=== PATIENT | female | born 1955 | race Caucasian/White ===

== ENCOUNTER 2023-07-09 09:43 | Outpatient (CLI) | payer OTHER, SELFPAY ==
--- NOTE | 2023-07-09 11:00 | NEURO_ITS ---
Impression: # Complains of feet discomfort. History of familial high arch feet. # Asymmetrical F-waves with right peroneal F-wave involvement. # Needle/EMG exam not requested. # Clinical correlation recommended. Question familial neuropathic process. Nerve Conduction Studies Anti Sensory Summary Table Stim Site NR Peak (ms) P-T Amp (?V) Site1 Site2 Delta-P (ms) Dist (cm) Kenrick (m/s) Left Sup Fibular Anti Sensory (Ant Lat Mall) 14 cm 3.4 4.8 14 cm Ant Lat Mall 3.4 16.0 47 Right Sup Fibular Anti Sensory (Ant Lat Mall) 14 cm 3.8 16.5 14 cm Ant Lat Mall 3.8 16.0 42 Left Sural Anti Sensory (Lat Mall) Calf 4.0 1.6 Calf Lat Mall 4.0 16.0 40 Right Sural Anti Sensory (Lat Mall) Calf 3.9 1.8 Calf Lat Mall 3.9 16.0 41 Motor Summary Table Stim Site NR Onset (ms) O-P Amp (mV) Site1 Site2 Delta-0 (ms) Dist (cm) Kenrick (m/s) Left Peroneal Motor (Vastus Med) Ankle 4.0 2.2 Popit Ankle 9.0 40.0 44 Popit 13.0 1.9 Right Peroneal Motor (Vastus Med) Ankle 4.1 3.2 Popit Ankle 9.1 40.0 44 Popit 13.2 3.0 Left Tibial Motor (Abd Coats Brev) Ankle 4.3 1.1 Knee Ankle 10.2 42.0 41 Knee 14.5 1.4 Right Tibial Motor (Abd Coats Brev) Ankle 4.4 2.4 Knee Ankle 10.1 42.0 42 Knee 14.5 2.0 F Wave Studies NR F-Lat (ms) L-R F-Lat (ms) Left Peroneal (Mrkrs) (EDB) 44.97 Right Peroneal (Mrkrs) Run #1 (EDB) 52.22 7.25 Right Peroneal (Mrkrs) Run #2 (EDB) NO RESPONSE NR Left Tibial (Mrkrs) (Abd Hallucis) 44.78 0.06 Right Tibial (Mrkrs) (Abd Hallucis) 44.72 0.06 MTDD
== END 2023-07-09 09:44 | disposition home or self-care (01) ==
PROVIDERS: PCP Family Medicine Adolescent Medicine; Visit Provider Family Medicine Adolescent Medicine
DX: G62.9 Polyneuropathy, unspecified (principal)
CPT/HCPCS: 95910

== ENCOUNTER 2023-09-21 03:11 | Emergency (ER) | payer OTHER, SELFPAY ==
[2023-09-21] VITALS (24 sets, daily range): BP systolic 119–150; BP diastolic 68–93; PULSE 70–109; RESP 16–20; TEMP 37.2–37.8; O2SAT 95–100
--- NOTE | ~2023-09-21 | US_ITS ---
EXAMINATION: US renal BI DATE: 09/21/2023 09:32 INDICATION: Intermittent proteinuria. TECHNIQUE: Multiple ultrasound grayscale images of the kidneys were obtained. COMPARISON: None. FINDINGS: The right kidney measures 10.0 x 3.3 x 4.6 cm. The left kidney measures 9.6 x 4.3 x 4.8 cm. The kidne ys demonstrate normal parenchymal echogenicity. There is no hydronephrosis. The bladder is normal. Th ere is a normal postvoid bladder volume. IMPRESSION: 1. Normal kidneys. No hydronephrosis. Reviewed, dictated and finalized at location A. TER APPRENTICE
--- NOTE | 2023-09-21 05:31 | PC.NURSE ---
Patient states she has come to the ED for evaluation of her back pain since April. Patient states she has seen her PCP and has a few visits with him. Patient states she has also had protein in her urine that her primary doesn't want to do anything about it. Patient states she has also seen a pet food deboner. Patient states she has been told she also has high cholesterol. Patient states she has come for evaluation, to hopefully get answers. Patient states I haven't taken anything for pain since I had protein in my urine and not sure where its coming from or why it is happening.
--- NOTE | 2023-09-21 07:02 | ED.BACK ---
HPI - Back Pain/Injury General Chief Complaint: Back Pain/Injury Stated Complaint: upper back pain Time Seen by Provider: 09/21/23 06:57 History of Present Illness HPI Narrative: Patient is a 68-year-old female who presents to the emergency department this morning complaining of back pain has been bothering for the past month. Patient states that she saw her primary care physician who did not seem to be too concerned about her back pain. Patient states that within the past month she has also noticed that there are a lot of problems in her urine and had her PCP test her for protein urea. Patient was noted to have protein in her urine and she was sent to a inward toll operator who she states did not do any bloodwork and just gave her a form to fill out to have a renal ultrasound performed as an outpatient. Patient is frustrated as she finds that she has been brushed off by both her PCP and inward toll operator and is concerned there is something wrong with her kidneys and has not been given any answers. Patient has not yet had her renal ultrasound. Back pain is in the left flank region. Patient admits that the pain is intermittent, comes and goes and feels achy. Patient is more concerned about the protein urea than the flank pain. She denies any current pain at this time. Patient denies any chest pain, shortness of breath, nausea, vomiting, abdominal pain, dysuria, hematuria, constipation, diarrhea, melena, hematochezia, fevers or chills. Patient also denies any headaches, dizziness, lightheadedness, blurry visions, focal weakness, numbness and or tingling. There are no other modifying, alleviating, or precipitating factors at this time. Related Data Home Medications Medication Instructions Recorded Confirmed ascorbic acid (vitamin C) 500 mg 500 mg PO 03/21/23 09/03/23 capsule cholecalciferol (vitamin D3) 125 125 mcg PO DAILY 03/21/23 09/03/23 mcg (5,000 unit) tablet magnesium 250 mg tablet 500 mg PO DAILY 03/21/23 09/03/23 mecobalamin (vitamin B12) 1,000 1,000 mcg PO DAILY 03/21/23 09/03/23 mcg lozenges multivitamin (Daily Multi-Vitamin 1 tablet PO DAILY 03/21/23 09/03/23 tablet) vitamin E (dl, acetate) 180 mg 180 mg PO DAILY 03/21/23 09/03/23 (400 unit) capsule Allergies Allergy/AdvReac Type Severity Reaction Status Date / Time oxycodone Allergy Nausea Verified 09/21/23 05:28 tramadol AdvReac Unknown Nausea Verified 09/21/23 05:28 Review of Systems Review of Systems: All systems are reviewed and are negative unless stated otherwise in the HPI. PMFSH Past Medical History Medical History Anxiety Chronic right hip pain Claustrophobia Surgical History Surgical History History of eye surgery History of total right hip arthroplasty (03/2022) Family History Family History Unknown No problems noted. 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 HEENT: PERRL, no rhinorrhea, no post nasal drip, oropharynx clear. Neck: Trachea midline, no JVD, no lymphadenopathy. Cardiovascular: Regular rate and rhythm, no murmurs, rubs or gallops, no [place]
[2023-09-21 07:38] LABS: Basophils Percent Auto 0.6 % (0.2-1.2); Hematocrit 39.9 % (37.0-47.0); Hemoglobin 13.5 g/dL (12.0-15.0); Immature Granulocyte Absolute 0.02 K/mm3 (0.00-0.031); Immature Granulocyte Percent A 0.4 % (0-0.5); Lymphocytes Absolute Auto 0.62 K/mm3 (0.9-3.2); Lymphocytes Percent Auto 11.5 % (18.3-44.2); Mean Corpuscular HGB Conc 33.8 g/dl (32-36); Mean Corpuscular Volume 100.5 fl (80-100); Mean Platelet Volume 9.5 fl (7.4-10.4); Monocytes Absolute Auto 0.8 K/mm3 (0.1-0.6); Monocytes Percent Auto 15.1 % (2.6-8.5); Neutrophils Absolute Auto 3.9 K/mm3 (1.3-6.7); Neutrophils Percent Auto 72.4 % (45.5-73.1); Platelet Count Result 171 k/mm3 (150-375); Red Blood Count 3.97 M/mm3 (4.2-5.4); Red Cell Distribution Width 12.7 % (11.5-14.5); White Blood Count 5.4 K/mm3 (4.5-10.0)
[2023-09-21 07:43] LABS: Appearance Urine Clear (Clear); Bilirubin Urine Negative (Negative); Blood Urine Negative (Negative); Color Urine Yellow (Yellow); Glucose Urine UA Negative (Negative); Ketones Urine 1+ mg/dL (Negative); Leukocyte Esterase Ur Negative LEU/UL (Negative); Nitrate Urine Negative (Negative); Protein Urine Negative (Negative); Specific Grav Ur 1.011 (1.001-1.035); Urobilinogen Urine 0.2 mg/dL (<2.0)
[2023-09-21 07:45] LABS: Add Urine Microscopic? NO
[2023-09-21 07:46] LABS: Alanine Aminotransferase 23 U/L (6-35); Albumin Level 4.3 g/dL (3.5-5.1); Alkaline Phosphatase 67 U/L (38-126); Anion Gap 7 mmol/L (8-16); Aspartate Amino Transferase 30 U/L (14-36); Bilirubin,Total 0.5 mg/dL (0.2-1.3); Blood Urea Nitrogen 9 mg/dL (7-17); Calcium 9.1 mg/dL (8.4-10.2); Carbon Dioxide 29 mmol/L (22-30); Chloride 101 mmol/L (98-107); Estimated CRCL calculation 75 ml/min; Estimated Glomerular Filt Rate > 60; Glucose 104 mg/dL (65-110); Potassium 3.8 mmol/L (3.4-5.0); Sodium 137 mmol/L (137-145)
[2023-09-21 07:51] LABS: Prothrombin Time 13.7 Seconds (11.1-14.7)
[2023-09-21] MEDS: SODIUM CHLORIDE 0.9% IV 1,000 ML 999 ML IV CONT (08:02)
== END 2023-09-21 10:03 | disposition home or self-care (01) ==
PROVIDERS: Emergency Provider Emergency Medicine; PCP Family Medicine Adolescent Medicine
DX: R80.9 Proteinuria, unspecified (principal); Z96.641 Presence of right artificial hip joint
CPT/HCPCS: 36415; 76775; 80053; 81001; 81003; 85025; 85610; 85730; 96360; 99284; J7030

== ENCOUNTER 2025-03-09 10:00 | Outpatient (CLI) | payer OTHER, SELFPAY ==
--- NOTE | ~2025-03-09 | DEXA_ITS ---
Bone Density Report Name: CANDICE SUE Age: 69 Sex: Female Ethnicity: White Date of : 1955 Indication: postmenopausal; screening for osteoporosis; Referring Provider: TANNA HOOD Study: Bone densitometry was performed. Exam Date: March 09, 2025 Accession number: [id number] Bone Density: Region BMD T-score Z-score Classification AP Spine(L1-L4) 0.825 -2.0 0.0 Osteopenia Femoral Neck (Left) 0.572 -2.5 -0.8 Osteoporosis Total Hip (Left) 0.639 -2.5 -1.1 Osteoporosis World Health Organization criteria for BMD impression classify patients as: Normal (T-score at or above -1.0), Osteopenia (T-score between -1.0 and -2.5), or Osteoporosis (T-score at or below -2.5). 10-year Fracture Risk: FRAX not reported because: Some T-score for Spine Total or Hip Total or Femoral Neck at or below -2.5 Clinical Information Provided by Patient: Has used the following medications: Vitamin D, Calcium Patient maximum height was 67 Menopause Age: 51 Does not regularly consume dairy products Onset of menses at age 12 Number of children 2 Impression: The patient has osteoporosis, based on the Left Total Hip T-score. Discussion: INCREASED RISK OF FRACTURE. BONE DENSITY IS UNDESIRABLY LOW AT ONE OR MORE SKELETAL SITES, CONSISTENT WITH POSTMENOPAUSAL OSTEOPOROSIS. This patient's lowest T-score meets the World Health Organization's (WHO) criteria for osteoporosis at one or more sites (T-score -2.5 or below). In untreated patients, the risk of osteoporotic fracture increases approximately two-fold for each 1.0 SD decrease in T-score. Low bone density is not the only risk factor for fracture; also consider factors such as patient's age, frailty or poor health, risk of falling, risk of injury, previous osteoporotic fracture, family history of osteoporosis, cigarette smoking, low body weight, etc. Not everyone with low bone mineral density has osteoporosis; osteomalacia and other metabolic bone disorders should also be considered. Patients who have osteoporosis should be evaluated for specific diseases and conditions (secondary causes) that may cause or contribute to bone loss. The [place] Association of Clinical Endocrinologists (AACE) and National Osteoporosis Foundation (NOF) recommend pharmacologic intervention for all postmenopausal women whose T-score is in this range. The patient should follow a healthful lifestyle (good nutrition with adequate calcium and vitamin D, and appropriate weight-bearing exercise). Follow-Up: Consider a repeat BMD and Vertebral Fracture Assessment (VFA) exam in 2 years or sooner if medically necessary, to reassess this patient's status. Reported by: GRIS on 03/09/2025 10:59:00 AM. Reviewed, dictated and finalized at location A.
--- OUTSIDE RECORDS SUMMARY | 2025-03-09 10:43 | XMS_ITS | Clinical Summary ---
Author Organization [facility] Address [address] [place] [address] Care Team Providers Care Town Manager Name Role Phone Dell Cam MD Primary Care Provider [phone] Allergies No known active allergies Medications ALPRAZolam 0.5 MG tabletIndication s:Anxiety Take 0.5 mg by mouth as needed in the morning and 0.5 mg as needed at noon and 0.5 mg as needed in the evening for Anxiety. Indications: Feeling Anxious. 1 Active fluorometholone 0.1 % ophthalmic suspension States she takes daily prn for dry eyes 1 Active Ascorbic Acid (VITAMIN C) 100 MG tabletIndication s:Vitamin and/or Mineral Deficiency Take 100 mg by mouth daily. Indications: Vitamin and/or Mineral Deficiency 2 Active Cyanocobalamin (VITAMIN B-12) 50 MCG TabIndications:V itamin and/or Mineral Deficiency Take 1 tablet by mouth daily. Indications: Vitamin and/or Mineral Deficiency 2 Active vitamin D3, cholecalciferol, 5000 UNITS capsuleIndicatio ns:Vitamin and/or Mineral Deficiency Take 1 capsule by mouth daily. Indications: Vitamin and/or Mineral Deficiency 2 Active Vitamin E 200 UNITS capsuleIndicatio ns:Vitamin and/or Mineral Deficiency Take 1 tablet by mouth daily. Indications: Vitamin and/or Mineral Deficiency 2 Active multi vitamin/minerals tabletIndication s:Vitamin and/or Mineral Deficiency Take 1 tablet by mouth daily. Indications: Vitamin and/or Mineral Deficiency 2 Active magnesium 250 MG tabletIndication s:Vitamin and/or Mineral Deficiency Take 2 tablets by mouth nightly. Indications: Vitamin and/or Mineral Deficiency 9 Active ibuprofen 200 MG tabletIndication s:Pain Take 600 mg by mouth every 6 (six) hours as needed for Pain. Indications: Pain 2 Active amoxicillin 500 MG tabletIndication s:Status post right hip replacement Take 4 tablets (2,000 mg total) by mouth once as needed. About 1 hour before dental procedures. 8 tablet 1 2 Active Active Problems Problem Noted Date Diagnosed Date Status post right hip replacement 03/26/2022 Family History Medical History Relation Comments Heart Disease Father Rheumatic Fever Father as Dementia Mother Hypertension Mother Stroke Mother Relation Status Comments Daughter 1 Alive Daughter 2 Alive Father Mother Alive Social History Tobacco Use Types Packs/Day Years Used Date Smoking Tobacco: Never Smokeless Tobacco: Never Tobacco Cessation:Counseling Given: No Comments:Never Smoked Alcohol Use Standard Drinks/Week Comments Not Currently 0 (1 standard drink = 0.6 oz pur e alcohol) NA PHQ-2 Answer Date Recorded PHQ-2 Score - If the patient scores above 3, please move on to questions 3-9 0 03/20/2022 Comments No Sex and Gender Information Value Date Recorded Sex Assigned at Not on file Legal Sex Female 8:01 PM CDT Gender Identity Not on file Sexual Orientation Not on file Last Filed Vital Signs Vital Sign Reading Time Taken Comments Blood Pressure 136/81 10/21/2022 10:21 AM PAINTER TOUCH UP Pulse 88 10/21/2022 10:21 AM PAINTER TOUCH UP Temperature 37.4 C (99.3 F) 10/21/2022 10:21 AM PAINTER TOUCH UP Respiratory Rate 18 05/08/2022 10:1 1 AM CDT Oxygen Saturation 97% 05/08/2022 10: 11 AM CDT Inhaled Oxygen Concentration - - Weight 69.6 kg (153 lb 6.4 oz) 10/21/2022 10:21 AM PAINTER TOUCH UP Height 170.2 cm (5' 7 ) 10/21/2022 10:2 1 AM PAINTER TOUCH UP Patient reported Body Mass Index 24.03 10/21/2022 10:21 AM PAINTER TOUCH UP Plan of Treatment Health Maintenance Due Date Last Done Comments Colorectal Cancer Screening Colonoscopy (10 Years) 1955 Hepatitis C 1974 DTaP, Tdap and Td Vaccines ( 1 - Tdap) 1975 Mammogram Screening 1996 Pneumococcal Vaccine: 50+ Years (1 of 1 - PCV) 2006 Zoster Vaccines (1 of 2) 2006 Annual Medicare Wellness Visit 2021 Dexa Scan (General) 2021 COVID-19 Vaccine (4 - 2023-2 5 season) 2024 09/03/2021, 02/18/2021, 01/29/2021 RSV Immunization or 60+ Years (1 - 1-dose 75+ series) 2031 Meningococcal B Vaccine Aged Out No l onger eligible based on patient's age to complete this topic Meningococcal Vaccine Aged Out No iram madyson eligible based on patient's age to complete this topic RSV Immunizations Under 20 Months Aged Out No longer eligible b ased on patient's age to complete this topic Medical Devices Implanted Type Area Supervisor Unloading Device Identifier Shelf Expiration Date Model / Serial / Lot Shell Acetabular Depuy 56mm - [id number] Implanted:Qty : 1 on 03/26/2022 by Shane Sparks MD at [facility] Hip Components Right: Hip DEPUY [id number] 02/01/2032 [id number] / / [id number] Liner Depuy Acet Altrx Neut 36x56 - [id number] Implanted:Qty : 1 on 03/26/2022 by Shane Sparks MD at [facility] Hip Components Right: Hip DEPUY [id number] 12/31/2026 [id number] / / [id number] Head Depuy Femoral Delta 36mm +8.5 - [id number] Implanted:Qty : 1 on 03/26/2022 by Shane Sparks MD at [facility] Hip Components Right: Hip DEPUY [id number] 01/31/2026 [id number] / / [id number] Stem Femoral 105mm Collar Actis Duofix 5 10/16 Standard Offset Taper Hip Sterile - [id number] Implanted:Qty : 1 on 03/26/2022 by Shane Sparks MD at [facility] Hip Components Right: Hip DEPUY [id number] 09/02/2031 [id number] / / [id number] Screw [place] Depuy 6.5 X 20mm - [id number] Implanted:Qty : 1 on 03/26/2022 by Shane Sparks MD at [facility] Screw Right: Hip DEPUY [id number] 12/03/2031 [id number] / / [id number] Screw [place] Depuy 6.5 X 20mm - [id number] Implanted:Qty : 1 on 03/26/2022 by Shane Sparks MD at [facility] Screw Right: Hip DEPUY [id number] 01/01/2032 [id number] / / [id number] [place] [address] [employer] Advance Directives * Full Code (Latest Code Status on File) Date Activated Date Inactivated Comments 03/28/2022 2:39 PM * Full Code Date Activated Date Inactivated Comments 03/26/2022 1:48 PM 03/27/2022 5:57 PM Care Teams Town Manager Relationship Specialty Start Date End Date Dell Cam MD [address] [place] [id number] PCP - General 07/17/16
== END 2025-03-09 10:01 | disposition home or self-care (01) ==
PROVIDERS: PCP Family Medicine Adolescent Medicine; Visit Provider Family Medicine Adolescent Medicine
DX: Z78.0 Asymptomatic menopausal state (principal); M85.88 Other specified disorders of bone density and structure, other site; M81.0 Age-related osteoporosis without current pathological fracture
CPT/HCPCS: 77080

== ENCOUNTER 2025-07-01 08:39 | Outpatient (CLI) | payer OTHER, SELFPAY | END 2025-07-01 08:40 | disposition home or self-care (01) | LOC: ANHAUDIO 08:40 | PROVIDERS: PCP Family Medicine Adolescent Medicine; Visit Provider Otolaryngology Otolaryngology/Facial Plastic Surgery | DX: H91.93 Unspecified hearing loss, bilateral (principal) | CPT/HCPCS: 92557; 92567 ==